=== PATIENT | male | born 1995 | race Caucasian/White ===

== ENCOUNTER 2018-10-18 20:53 | Emergency (ER) | payer BC ==
[~2018-10-18] VITALS: Ht 185.4 cm; Wt 81.8 kg
[2018-10-18 20:56] VITALS: TEMP 97.9
[2018-10-19 00:26] VITALS: BP 113/66; PULSE 71
== END 2018-10-19 00:30 | disposition home or self-care (01) ==
LOC: COL.ER 20:53
DX: T18.128A Food in esophagus causing other injury, initial encounter (principal)
CPT/HCPCS: J2704; J3010; J7030